=== PATIENT | female | born 1955 | race Caucasian/White ===

== ENCOUNTER 2019-05-24 21:49 | Emergency (ER) | payer MEDICARE, BC ==
[2019-05-25] MEDS ORDERED: Ibuprofen TAB* 400 MG PO ONE (01:38)
[2019-05-25] MEDS ORDERED: Acetaminophen TAB* 325 MG PO ONE (01:38)
[2019-05-25] MEDS ORDERED: NS 0.9% 1000 ML** 2,000 ML IV ONE (01:38)
[2019-05-25 02:07] LABS: ABS Eosinophils 0.2 10^3/ul (0-0.6); ABS Lymphocytes 0.7 10^3/ul (1.0-4.8); ABS Monocytes 0.2 10^3/ul (0-0.8); ABS Neutrophils 1.9 10^3/ul (1.5-7.7); Eosinophil % 6.7 %; Hematocrit 35 % (35-47); Hemoglobin 11.7 g/dL (12.0-16.0); Lymphocyte % 22.3 %; Mean Corpuscular HGB Conc 34 g/dL (31-36); Mean Corpuscular Hemoglobin 31 pg (27-31); Mean Corpuscular Volume 93 fL (80-97); Mean Platelet Volume 7.8 fL (7.4-10.4); Nucleated Red Blood Cells % 0.1; Platelet Count 196 10^3/uL (150-450); Red Blood Count 3.76 10^6 /uL (3.70-4.87); Red Cell Distribution Width 13 % (10-15)
[2019-05-25 02:16] LABS: Activated Partial Thrombo Time 35.6 seconds (26.0-38.0); INR 1.1 (0.82-1.09)
[2019-05-25 02:18] LABS: Urine Appearance Clear; Urine Bacteria Absent (Absent); Urine Bilirubin Negative (Negative); Urine Blood Negative (Negative); Urine Color Straw; Urine Glucose Negative (Negative); Urine Ketones Negative (Negative); Urine Nitrite Negative (Negative); Urine Protein Negative (Negative); Urine Red Blood Cell Absent (Absent); Urine Specific Gravity 1.006 (1.010-1.030); Urine Urobilinogen Negative (Negative); Urine White Blood Cell Absent (Absent)
[2019-05-25 02:27] LABS: Albumin 3.8 g/dL (3.2-5.2); Albumin/Globulin Ratio 1.3 (1-3); BUN/Creatinine Ratio 15.5 (8-20); C Reactive Protein 9.35 mg/L (<8.01); EGFR African American 82.3 (>60); Globulin 2.9 g/dL (2-4); Potassium 3.7 mmol/L (3.5-5.0); Total Bilirubin 0.7 mg/dL (0.2-1.0); Total Protein 6.7 g/dL (6.4-8.9)
[2019-05-25 03:49] VITALS: BP 96/58
--- NOTE | 2019-05-25 05:11 | ED ---
HPI Febrile Illness - HPI Summary HPI Summary: Patient is a 64 y/o F presenting to ED with complaints of febrile illness and neck pain. Patient reports that fever onset the evening of 05/24/19. 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 When patient returned home, she felt hot and measured her temp to be 103.6 F. She took ibuprofen and measured her temperature once more, claiming it was 104.6 F. Patient additionally reports experiencing neck pain. However, she relates this to a new violin attachment that she was using today. She denies N/V, WALTON, photophobia, sore throat, and abnormal urination. Patient is concerned for tick bites and wants to be tested for Lyme, as she states that she is outdoors frequently. She denies rashes. On triage, pain is rated 1/10, nothing is noted to aggravate/alleviate Sx. Home medications and allergies are reviewed. - History of Current Complaint Chief Complaint: EDFever Time Seen by Provider: 05/25/19 01:03 Hx Obtained From: Patient Onset/Duration: Started Hours Ago - onset evening of 05/24/19, Still Present Timing: Constant, Lasting Hours - onset evening of 05/24/19 Current Severity: Mild Pain Intensity: 1 Pain Scale Used: 0-10 Numeric Aggravating Factors: Nothing Alleviating Factors: Nothing Associated Signs and Symptoms: Other: - positive - neck pain; negative - N/V, WALTON , photophobia, sore throat, rash and abnormal urination - Allergy/Home Medications Allergies/Adverse Reactions: Allergies Allergy/AdvReac Type Severity Reaction Status Date / Time No Known Allergies Allergy Verified 05/24/19 21:55 PMH/Surg Hx/FS Hx/Imm Hx Musculoskeletal History: Denies: Hx Rheumatoid Arthritis, Hx Osteoporosis Sensory History: Denies: Hx Legally Blind, Hx Deafness Opthamlomology History: Denies: Hx Legally Blind EENT History: Denies: Hx Deafness - Cancer History Hx Chemotherapy: No Hx Radiation Therapy: No Infectious Disease History: Yes Infectious Disease History: Denies: Traveled Outside the [place] in Last 30 Days - Family History Known Family History: Negative: Diabetes - Social History Alcohol Use: Weekly Substance Use Type: Reports: None Smoking Status (MU): Former Smoker Review of Systems Positive: Fever Negative: Photophobia Negative: Sore Throat Negative: Vomiting, Nausea Positive: no symptoms reported - no abnormal urination Musculoskeletal: Other - positive - neck pain Negative: Rash Negative: Headache All Other Systems Reviewed And Are Negative: Yes Physical Exam - Summary Physical Exam Summary: VITAL SIGNS: Reviewed. GENERAL: Patient is a well-developed and nourished female who is lying comfortable in the stretcher. Patient is not in any acute respiratory distress. HEAD AND FACE: No signs of trauma. No ecchymosis, hematomas or skull depressions. No sinus tenderness. EYES: PERRLA, EOMI x 2, No injected conjunctiva, no nystagmus. EARS: Hearing grossly intact. Ear canals and tympanic membranes are within normal limits. MOUTH: Oropharynx within normal limits. NECK: Supple, trachea is midline, no adenopathy, no JVD, no carotid bruit, no c- spine tenderness, neck with full ROM CHEST: Symmetric, no tenderness at palpation LUNGS: Clear to auscultation bilaterally. No wheezing or crackles. CVS: Regular rate and rhythm, S1 and S2 present, no murmurs or gallops appreciated. ABDOMEN: Soft, non-tender. No signs of distention. No rebound no guarding, and no masses palpated. Bowel sounds are normal. EXTREMITIES: FROM in all major joints, no edema, no cyanosis or clubbing. NEURO: Alert and oriented x 3. No acute neurological deficits. Speech is normal and follows commands. SKIN: Dry and warm Triage Information Reviewed: Yes Vital Signs On Initial Exam: Initial Vitals Temp Pulse Resp BP Pulse Ox 96.9 F 67 16 140/77 99 05/24/19 21:51 05/24/19 21:51 05/24/19 21:51 05/24/19 21:51 05/24/19 21:51 Vital Signs Reviewed: Yes Diagnostics - Vital Signs Vital Signs Temp Pulse Resp BP Pulse Ox 05/25/19 03:49 97.1 F 58 18 96/58 98 05/25/19 03:14 58 96/58 98 05/25/19 03:00 56 96 05/25/19 02:44 52 100/53 98 05/25/19 02:14 51 93/56 96 05/25/19 02:00 58 98 05/25/19 01:44 52 93/62 96 05/25/19 01:16 56 94 05/25/19 01:15 53 98/60 98 05/25/19 01:09 97.7 F 05/25/19 00:22 99.3 F 64 16 100/61 99 05/24/19 21:51 96.9 F 67 16 140/77 99 - Laboratory Lab Results: Lab Results 05/25/19 05/25/19 05/25/19 Range/Units 01:55 01:55 01:55 WBC 3.0 L (3.5-10.8) 10^3/uL RBC 3.76 (3.70-4.87) 10^6 /uL Hgb 11.7 L (12.0-16.0) g/dL Hct 35 (35-47) % MCV 93 (80-97) fL MCH 31 (27-31) pg MCHC 34 (31-36) g/dL RDW 13 (10-15) % Plt Count 196 (150-450) 10^3/uL MPV 7.8 (7.4-10.4) fL Neut % (Auto) 62.2 % Lymph % (Auto) 22.3 % Garrard % (Auto) 7.5 % Eos % (Auto) 6.7 % Baso % (Auto) 1.3 % Absolute Neuts (auto) 1.9 (1.5-7.7) 10^3/ul Absolute Lymphs (auto) 0.7 L (1.0-4.8) 10^3/ul Absolute Monos (auto) 0.2 (0-0.8) 10^3/ul Absolute Eos (auto) 0.2 (0-0.6) 10^3/ul Absolute Basos (auto) 0.0 (0-0.2) 10^3/ul Absolute Nucleated RBC 0.0 10^3/ul Nucleated RBC % 0.1 INR (Anticoag Therapy) 1.10 H (0.82-1.09) APTT 35.6 (26.0-38.0) seconds Sodium 135 (135-145) mmol/L Potassium 3.7 (3.5-5.0) mmol/L Chloride 103 (101-111) mmol/L Carbon Dioxide 28 (22-32) mmol/L Anion Gap 4 (2-11) mmol/L BUN 13 (6-24) mg/dL Creatinine 0.84 (0.51-0.95) mg/dL Est GFR ( Amer) 82.3 (>60) Est GFR (Non-Af Amer) 68.0 (>60) BUN/Creatinine Ratio 15.5 (8-20) Glucose 101 H (70-100) mg/dL Lactic Acid (0.5-2.0) mmol/L Calcium 9.0 (8.6-10.3) mg/dL Total Bilirubin 0.70 (0.2-1.0) mg/dL AST 31 (13-39) U/L ALT 25 (7-52) U/L Alkaline Phosphatase 78 (34-104) U/L Total Creatine Kinase 68 (10-223) U/L C-Reactive Protein 9.35 H (<8.01) mg/L Total Protein 6.7 (6.4-8.9) g/dL Albumin 3.8 (3.2-5.2) g/dL Globulin 2.9 (2-4) g/dL Albumin/Globulin Ratio 1.3 (1-3) Urine Color Urine Appearance Urine pH (5-9) Ur Specific [place] (1.010-1.030) Urine Protein (Negative) Urine Ketones (Negative) Urine Blood (Negative) Urine Nitrate (Negative) Urine Bilirubin (Negative) Urine Urobilinogen (Negative) Ur Leukocyte Esterase (Negative) Urine WBC (Auto) (Absent) Urine RBC (Auto) (Absent) Urine Bacteria (Absent) Urine Glucose (Negative) 05/25/19 05/25/19 Range/Units 01:55 02:02 WBC (3.5-10.8) 10^3/uL RBC (3.70-4.87) 10^6 /uL Hgb (12.0-16.0) g/dL Hct (35-47) % MCV (80-97) fL MCH (27-31) pg MCHC (31-36) g/dL RDW (10-15) % Plt Count (150-450) 10^3/uL MPV (7.4-10.4) fL Neut % (Auto) % Lymph % (Auto) % Garrard % (Auto) % Eos % (Auto) % Baso % (Auto) % Absolute Neuts (auto) (1.5-7.7) 10^3/ul Absolute Lymphs (auto) (1.0-4.8) 10^3/ul Absolute Monos (auto) (0-0.8) 10^3/ul Absolute Eos (auto) (0-0.6) 10^3/ul Absolute Basos (auto) (0-0.2) 10^3/ul Absolute Nucleated RBC 10^3/ul Nucleated RBC % INR (Anticoag Therapy) (0.82-1.09) APTT (26.0-38.0) seconds Sodium (135-145) mmol/L Potassium (3.5-5.0) mmol/L Chloride (101-111) mmol/L Carbon Dioxide (22-32) mmol/L Anion Gap (2-11) mmol/L BUN (6-24) mg/dL Creatinine (0.51-0.95) mg/dL Est GFR ( Amer) (>60) Est GFR (Non-Af Amer) (>60) BUN/Creatinine Ratio (8-20) Glucose (70-100) mg/dL Lactic Acid 0.4 L (0.5-2.0) mmol/L Calcium (8.6-10.3) mg/dL Total Bilirubin (0.2-1.0) mg/dL AST (13-39) U/L ALT (7-52) U/L Alkaline Phosphatase (34-104) U/L Total Creatine Kinase (10-223) U/L C-Reactive Protein (<8.01) mg/L Total Protein (6.4-8.9) g/dL Albumin (3.2-5.2) g/dL Globulin (2-4) g/dL Albumin/Globulin Ratio (1-3) Urine Color Straw Urine Appearance Clear Urine pH 6.0 (5-9) Ur Specific [place] 1.006 L (1.010-1.030) Urine Protein Negative (Negative) Urine Ketones Negative (Negative) Urine Blood Negative (Negative) Urine Nitrate Negative (Negative) Urine Bilirubin Negative (Negative) Urine Urobilinogen Negative (Negative) Ur Leukocyte Esterase Trace A (Negative) Urine WBC (Auto) Absent (Absent) Urine RBC (Auto) Absent (Absent) Urine Bacteria Absent (Absent) Urine Glucose Negative (Negative) Result Diagrams: 05/25/19 01:55 05/25/19 01:55 Lab Statement: Any lab studies that have been ordered have been reviewed, and results considered in the medical decision making process. - Radiology CXR Radiology Interpretation Completed By: ED Physician Summary of Radiographic Findings: CXR no acute process, pending official report. Re-Evaluation - Re-Evaluation First Eval Re-Evaluation Time: 05:02 Comment: Results of labs and tests were discussed with the patient. The patient will be discharged to home and follow up with PCP. Strict return precautions were given. Patient is agreeable with plan. Course/Dx - Course Course Of Treatment: Patient is a 64 y/o F presenting to ED with complaints of febrile illness and neck pain. Patient reports that fever onset the evening of . 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 When patient returned home, she felt hot and measured her temp to be 103.6 F. She took ibuprofen and measured her temperature once more, claiming it was 104.6 F. Patient additionally reports experiencing neck pain. However, she relates this to a new violin attachment that she was using today. She denies N/V, WALTON, photophobia, sore throat, and abnormal urination. Patient is concerned for tick bites and wants to be tested for Lyme, as she states that she is outdoors frequently. She denies rashes. Physical exam is unremarkable. CXR no acute process. Labs showed WBC 3, Hgb 11.7, absolute lymphs 0.7, INR 1.1, glucose 101, lactic 0.4, CRP 9.35. UA showed trace leukocyte esterase. Ehrlichia and Lyme titers sent. During ED course, patient received fluids. Results of labs and tests were discussed with the patient. The patient will be discharged to home and follow up with PCP. Strict return precautions were given. Patient is agreeable with plan. - Diagnoses Provider Diagnoses: Fever, Viral syndrome Discharge - Sign-Out/Discharge Documenting (check all that apply): Patient Departure - DISCHARGE Patient Received Moderate/Deep Sedation with Procedure: No - Discharge Plan Condition: Stable Disposition: HOME Prescriptions: Ibuprofen TAB* [Motrin TAB* 600 MG] 600 mg PO Q6H PRN #30 tab PRN Reason: Fever Patient Education Materials: Fever in Adults (ED), Viral Syndrome (ED) Referrals: Martha Oconnor MD [Primary Care Provider] - 3 Days Additional Instructions: PLEASE RETURN TO THE ED IMMEDIATELY FOR WORSENING OR CONCERNING SYMPTOMS. FOLLOW UP WITH YOUR PRIMARY CARE PHYSICIAN WITHIN THREE DAYS. - Billing Disposition and Condition Condition: STABLE Disposition: Home - Attestation Statements Document Initiated by Bri: Yes Documenting Scribe: KEVIN CHRIS Provider For Whom Bri is Documenting (Include Credential): AMNA CABAN MD Scribe Attestation: KEVIN Garcia, scribed for AMNA CABAN MD on 05/25/19 at 2158. Scribe Documentation Reviewed: Yes Provider Attestation: The documentation as recorded by the KEVIN gordon accurately reflects the service I personally performed and the decisions made by me, AMNA CABAN MD Status of Scribe Document: Viewed
[2019-05-25 10:55] LABS: Hepatitis C Antibody Negative (Negative)
[2019-05-26 23:54] LABS: Anaplasma phagocytophilium <1:64 titer (<1:64); Ehrlichia chaffeensis IgG AB <1:64 titer (<1:64); Lyme Disease Serology Negative (Negative)
== END 2019-05-25 03:50 | disposition home or self-care (01) ==
LOC: ED 21:49
DX: B34.9 Viral infection, unspecified (principal); Z87.891 Personal history of nicotine dependence
CPT/HCPCS: 36415; 71045; 80053; 81003; 81015; 82550; 83605; 85025; 85610; 85730; 86140; 86618; 86666; 86753; 86803; 87040; 87086; 96360; 96361; 99283; A9270-GY